=== PATIENT | male | born 1970 | race Caucasian/White ===

== ENCOUNTER 2021-05-18 09:03 | Emergency (ER) | payer OTHER, BC, SELFPAY ==
--- NOTE | ~2021-05-18 | CT_ITS ---
EXAMINATION: CT orbit BI wo con EXAM DATE: 05/18/2021 11:26 INDICATION: Right eye injury. Right eyelid injury, laceration. TECHNIQUE: Spiral CT of the orbits was acquired in the axial plane without contrast. Coronal reform atted images were also reviewed. The dose-length product (DLP) for this examination was 139.14 mGy-c m. The exposure was tailored according to patient size, and iterative reconstruction (ASIR) was used as additional dose reduction technique. There is no prior study for comparison. FINDINGS: There are no displaced acute nasal bone fractures. There is a punctate focus of gas above the anterior and superior (superficial) aspect of the right globe, indicated on axial image 18, sagit steve image 55. This is most likely preseptal, could have been introduced from reported laceration. No radiopaque foreign bodies identified. Orbital stewart are intact. There is no post septal inflammatio n. Globes are symmetric and appear intact. No evidence of sinus air-fluid level (maxillary sinuses d ependently most aspects were imaged). The mastoid air cells are well aerated. IMPRESSION: 1. Small focus of gas along the superficial superior aspect right lobe which could have been introdu mary from a laceration, most likely preseptal. 2. Symmetric globes. Reviewed, dictated and finalized at location A. [employer] IMPRESSION: 1. Small focus of gas along the superficial superior aspect right lobe which c ould have been introduced from a laceration, most likely preseptal. 2. Symmetric globes.
[2021-05-18 09:06] VITALS: BP 166/94; PULSE 92; TEMP 37.3; O2SAT 98
[2021-05-18] MEDS: TETANUS,DIPHTHERIA,AC PERTUSSIS ADULT (0.5 ML) BOOSTRIX IM (11:13)
--- NOTE | 2021-05-18 11:15 | ED.WOUNDLAC ---
HPI - Wound/Laceration General Chief Complaint: Wound/Laceration <Khadra Cisneros PA-C - Last Filed: 05/18/21 14:33> Stated Complaint: eye lac <Khadra Cisneros PA-C - Last Filed: 05/18/21 14:33> Time Seen by Provider: 05/18/21 10:21 <Khadra Cisneros PA-C - Last Filed: 05/18/21 14:33> Source: patient <Khadra Cisneros PA-C - Last Filed: 05/18/21 14:33> Mode of arrival: ambulatory <Khadra Cisneros PA-C - Last Filed: 05/18/21 14:33> Limitations: no limitations <Khadra Cisneros PA-C - Last Filed: 05/18/21 14:33> History of Present Illness HPI narrative: This is a 50 year old male that presents to the ER for laceration to the right eyelid sustained just prior to arrival. Reports he was trimming trees and a branch hit him in the right eye. Reports some discomfort in the eye and redness. He is not up to date on tetanus. Denies pain with EOMs, visual changes or vomiting. <Khadra Cisneros PA-C - Last Filed: 05/18/21 14:33> Related Data Allergies/Adverse Reactions: Allergies Allergy/AdvReac Type Severity Reaction Status Date / Time No Known Allergies Allergy Verified 05/18/21 11:12 <Khadra Cisneros PA-C - Last Filed: 05/18/21 14:33> Review of Systems Review of Systems: CONSTITUTIONAL: Denies fever EYES: Reports redness. Denies discharge or visual changes <Khadra Cisneros PA-C - Last Filed: 05/18/21 14:33> All systems reviewed & are unremarkable except as noted in HPI and below <Khadra Cisneros PA-C - Last Filed: 05/18/21 14:33> PMFSH Past Medical History Medical History: Medical History (Updated 05/18/21 @ 14:27 by Khadra Cisneros PA-C) No active medical problems <Khadra Cisneros PA-C - Last Filed: 05/18/21 14:33> Social History Social History: Social History (Updated 05/18/21 @ 14:12 by Khadra Cisneros PA-C) Substance use: never <Khadra Cisneros PA-C - Last Filed: 05/18/21 14:33> Exam Narrative: GENERAL: Well-appearing, well-nourished, and in no acute distress. HEAD: Normocephalic, atraumatic. EYES: PERRLA and EOMI. Right eye with positive fluorescein stain uptake with a defect in the conjunctiva medial to the iris that is about 8mm by 4mm. Right lower eyelid with 1cm linear laceration into subcutaneous tissue to the medial canthus, there does not appear to be involvement of the lacrimal system. Visual acuity with 20/25 left eye and 20/20 right eye CHEST: No respiratory distress. HEART: Regular rate EXTREMITIES: Normal range of motion. No edema. SKIN: Warm, dry, no rash. NEURO: No focal deficits. Alert and oriented x3. PSYCH: Normal mood and affect <Khadra Cisneros PA-C - Last Filed: 05/18/21 14:33> Course SHOE IRONER/PA Physician Supervision For this patient encounter, I reviewed the SHOE IRONER or PA documentation, treatment plan, and medical decision making; and I had [id number]-[id number] time with this patient. <John Hoover MD - Last Filed: 05/18/21 19:34> Consultations Consultation #1: Spoke with Dr. Jason Blanchard about patient and workup. Patient will be placed on Moxifloxacin drops and erythromycin ointment for laceration to the eyelid. Okay to hold off on repairing laceration of the eyelid. Will be seen in clinic in the morning <Khadra Cisneros PA-C - Last Filed: 05/18/21 14:33> Date: 05/18/21 <Khadra Cisneros PA-C - Last Filed: 05/18/21 14:33> Time: 14:19 <Khadra Cisneros PA-C - Last Filed: 05/18/21 14:33> Vital Signs Vital signs: Vital Signs Temperature 99.1 F 05/18/21 09:06 Pulse Rate 92 05/18/21 09:06 Blood Pressure 166/94 H 05/18/21 09:06 Pulse Oximetry 98 05/18/21 09:06 Temperature 99.1 F 05/18/21 09:06 Pulse Rate 82 05/18/21 13:19 Respiratory Rate 18 05/18/21 13:19 Blood Pressure 166/94 H 05/18/21 09:06 Pulse Oximetry 98 05/18/21 13:19 <Khadra Cisneros PA-C - Last Filed: 05/18/21 14:33> Vital Signs Temperature 99.1 F 05/18/21 09:06 Pulse Rate
[2021-05-18 13:19] VITALS: PULSE 82; RESP 18; O2SAT 98
== END 2021-05-18 14:44 | disposition home or self-care (01) ==
PROVIDERS: Emergency Provider Emergency Medicine
DX: S01.111A Laceration without foreign body of right eyelid and periocular area, initial encounter (principal); S05.01XA Injury of conjunctiva and corneal abrasion without foreign body, right eye, initial encounter; Z23 Encounter for immunization; W22.8XXA Striking against or struck by other objects, initial encounter; Y93.H2 Activity, gardening and landscaping
CPT/HCPCS: 70480; 90471; 90715; 99284; A9270